=== PATIENT | female | born 1995 | race Caucasian/White ===

== ENCOUNTER → 2018-04-15 09:03 | Outpatient (CLI) | payer MEDICAID, SELFPAY | PROVIDERS: PCP Pediatrics; Visit Provider Nurse Practitioner | DX: Z02.0 Encounter for examination for admission to educational institution (principal) ==

== ENCOUNTER 2019-10-18 14:30 | Outpatient (RCR) | payer MEDICAID, SELFPAY ==
--- NOTE | 2019-10-11 15:43 | HMH.PTOPEV ---
PT Outpatient Evaluation Rehab PT Outpatient Evaluation Start: 10/11/19 15:06 Freq: Status: Active Protocol: Document 10/11/19 15:33 PHOMAJO (Rec: 10/11/19 15:43 PHORNE [id number]) Electronically Signed By Jason Cole, PT 10/11/19 15:33 Outpatient Therapy Subjective History Subjective History Pt is 24 yowf who presents with c/o pain in lateral and post left hip x 3 yrs after receiving an epidural during childbirth. She reports the pain is constant, but worse with prolonged standing and walking. She reports no numbness or tingling and no pain further down the left LE. She also reports no c/o pain in the low back. PMH: none significant. Chief Complaint Pain Symptom Type Ache,Sharp Symptoms Relieved By Rest/Positioning Symptoms Aggravated By Standing,Walking Prior Functional Limitations None Current Functional Limitations Lifting,Standing,Walking Symptom Description Constant but Variable Level of pain today (0-10) 2 Pain scale - at its worst (0-10) 7 Lumbopelvic Eval Palapation tenderness left Lumbar/Sacral Palpation Findings Tenderness Lumbar/Sacral Palpation Overall Comment Greater troch and SI Range of Motion Lumbar Spine ROM Reason Not Measured Within Functional Limits Manual Muscle Test Bilateral Knee Extension Strength Grade 5 Normal Knee Flexion Strength Grade 5 Normal Hip Flexion Strength Grade 5 Normal Hip Abduction Strength Grade 5 Normal Hip Adduction Strength Grade 5 Normal Hip External Rotation Strength Grade 5 Normal Hip Internal Rotation Strength Grade 5 Normal Ankle Dorsiflexion Strength Grade 5 Normal Gastronemius/Soleus Strength Grade 5 Normal DTR Rt Patellar 2+ Lt Patellar 2+ Rt Gastroc/Soleus 2+ Lt Gastroc/Soleus 2+ Special Tests Forward Bending Test- Standing Negative Left,Negative Right Hip Scouring (Quadrant) Test Negative Left,Negative Right Hip Frederick (CORNELIUS) Test Negative Left,Negative Right Hip Piriformis Test Negative Right,Positive Left Hip Bowstring (Cram) Test Negative Left,Negative Right Sciatic Nerve Tension Test Negative Right,Positive Left Unilateral Straight Leg Raise (Lasegue) Negative Left,Negative Right Test Lumbar Long [place] Distraction Test/Manual Negative Traction Outpatient Therapy Assessment Impairments Problems/Impairmments Palpation Tenderness,Imp
== END 2019-10-18 14:35 | disposition home or self-care (01) ==
LOC: PT 14:30
PROVIDERS: Visit Provider Nurse Practitioner Family
DX: M54.5 Low back pain (principal)
CPT/HCPCS: 97010; 97014; 97110; 97140; 97163; G0283

== ENCOUNTER → 2020-06-12 09:11 | Outpatient (CLI) | payer MEDICAID, SELFPAY ==
[2020-06-12 10:24] LABS: Alanine Aminotransferase 35 U/L (12-78); Albumin Level 4.1 g/dl (3.5-5.0); Alkaline Phosphatase 52 U/L (38-126); Aspartate Amino Transferase 25 U/L (14-36); Bilirubin,Direct 0.1 mg/dl (0.0-0.4); Bilirubin,Indirect 0.4 mg/dL (0.0-0.9); Bilirubin,Total 0.5 mg/dl (0.2-1.3); Bilirubin,Unconjugated 0.4 mg/dL (0.0-1.1)
== END ==
PROVIDERS: Visit Provider Podiatrist
DX: B35.1 Tinea unguium (principal)
CPT/HCPCS: 36415; 80076; 87102; 87206; 87220

== ENCOUNTER 2020-11-08 14:39 | Emergency (ER) | payer BC, MEDICAID, SELFPAY ==
[2020-11-08 14:39] VITALS: BP 159/91; PULSE 107; RESP 21; TEMP 36.8; O2SAT 99; BMI 30.7
[2020-11-08 15:16] LABS: UTC Strep Screen (Rapid) Positive (Negative)
[2020-11-08 15:17] LABS: UTC Influenza A Antigen Negative (Negative); UTC Influenza B Antigen Negative (Negative)
--- NOTE | 2020-11-08 15:23 | HMH.EDUTC ---
[facility] [place] Disposition Clinical Impression: Strep throat Disposition: Home, Self-Care Condition on Discharge: Good Instructions: Strep Throat, DI for Strep Throat Additional Instructions: Drink plenty of fluids. Take tylenol or ibuprofen for pain or fever. Take the medications as directed. Follow up with your regular doctor. GO TO THE ER FOR ANY WORSENING SYMPTOMS Throw your tooth brush away and get a new one tomorrow. Prescriptions: Ondansetron [Zofran 4mg ODT] 4 mg PO Q8HP PRN #12 tab.rapdis PRN Reason: Nausea Transmission Status: Received by [id number] Azithromycin [Z-Leif 250mg Tab*] 250 mg PO UD DOSE PK #6 tab Transmission Status: Received by [facility] Referrals: Toño Coyne APRN [Primary Care Provider] - Forms: Work/School Release Time of Disposition: 15:38 Medical Decision Making - Medical Records Medical records reviewed: No: I reviewed the patient's medical records. - Francisco Inquiry Pt receiving controlled substance: No Vital Signs: 11/08/20 14:39 11/08/20 15:40 Temperature 98.3 F 98.3 F Temperature Source Oral Oral Pulse Rate 107 H Pulse Rate [Right] 107 H Respiratory Rate 21 21 Blood Pressure 159/91 H Blood Pressure [Right Arm] 159/91 H Blood Pressure Mean [Right Arm] 113 02 Sat by Pulse Oximetry 99 Oxygen Delivery Method Room Air - Lab Data Lab results reviewed: Yes: I reviewed the patient's lab results. Lab Results 11/08/20 15:04: Influenza Type A Ag Negative, Influenza Type B Ag Negative 11/08/20 15:04: Strep Scn Rapid [facility] Positive A [facility] [place] HPI - General Stated complaint: Flu test Time Seen by Provider: 11/08/20 15:23 Description of Symptoms (Recalled from Triage Doc. by RN): States she has had NVD, body aches and cough, denies fever, states she believes she has the flu. HEENT Symptoms (Recalled from RN notes): Yes Resp Symptoms (Recalled from RN notes): Yes Skin Symptoms (Recalled from RN notes): No MS Symptoms (Recalled from RN notes): No Functional Status (Recalled from RN notes): na - History of Present Illness Provider Complaint: She reports that she has had a sore throat, nausea, and fever for the past 1 day. She had a negative covid test at her work today (snf). - Related Data Previous Rx's Medication Instructions Recorded ciclopirox 8 % topical solution 1 applic TOPICAL DAILY 90 Days 06/12/20 #6.6 ml terbinafine HCl 250 mg tablet 250 mg PO DAILY #30 tab 06/12/20 Azithromycin [Z-Leif 250mg Tab*] 250 mg PO UD DOSE PK #6 tab 11/08/20 Ondansetron [Zofran 4mg ODT] 4 mg PO Q8HP PRN #12 tab.rapdis 11/08/20 Allergies Allergy/AdvReac Type Severity Reaction Status Date / Time clavulanic acid Allergy Intermediate I-HIVES Verified 06/12/20 08:22 [From AUGMENTIN] clindamycin [CLINDAMYCIN] Allergy Intermediate I-HIVES Verified 06/12/20 08:22 cephalexin Allergy Verified 06/12/20 08:22 - Worker's Comp Is this a Worker's Comp case?: No [facility] History - Hepatitis A Screen Drug use history?: No High risk sexual behaviors?: No History of sexually transmitted infection?: No Currently employed?: No Childcare worker?: No Do you have indoor plumbing?: Yes Do you have electricity?: Yes Attestation statement:: This patient has been screened for Hepatitis A risk factors. I have reviewed the patient's past medical history: Yes Medical History: Reports:: Depression, MRSA Other Surgeries: Yes: Colonoscopy, Tubal Ligation Amputation: No Fractures: No Comment: Rt knee - Social History Smoking Status: Current every day smoker Tobacco Type: cigarettes # Packs/Day (cigarettes): 1 Alcohol Intake: never Substance Use Type: denies use Occupational Status: other - Psychiatric History Pschychiatric History:: Reports:: Depression Family Hx:: No significant family history ROS Obtained: Yes All systems reviewed & no additional complaints - Constitutional Constitutional: Reports chills, Repor
[2020-11-08 15:40] VITALS: BP 159/91; PULSE 107; RESP 21; TEMP 36.8; O2SAT 99
== END 2020-11-08 15:44 | disposition home or self-care (01) ==
PROVIDERS: Emergency Provider Nurse Practitioner Family; PCP Nurse Practitioner Family
DX: J02.0 Streptococcal pharyngitis (principal); F17.210 Nicotine dependence, cigarettes, uncomplicated; Z88.1 Allergy status to other antibiotic agents
CPT/HCPCS: 87804; 87880; 99202; G0463

== ENCOUNTER 2021-01-31 14:16 | Emergency (ER) | payer BC, MEDICAID, SELFPAY ==
[2021-01-31 14:29] VITALS: BP 111/73; PULSE 67; RESP 16; TEMP 36.8; O2SAT 99; BMI 31.9
--- NOTE | 2021-01-31 14:43 | HMH.EDUTC ---
[facility] [place] Disposition Clinical Impression: Vertigo Serous otitis media Qualifiers: Chronicity: acute Laterality: bilateral Recurrence: non-recurrent Qualified Code(s): H65.03 - Acute serous otitis media, bilateral Disposition: Home, Self-Care Condition on Discharge: Good Instructions: DI for Vertigo, How to Perform Kiana Maneuver Additional Instructions: Take the medications as directed. The meclizine (antivert) medication will make you drowsy, so don't drive or operate heavy machinery after taking it. Follow up with your primary care doctor. GO TO THE ER FOR ANY WORSENING SYMPTOMS OR CONCERNS, ESPECIALLY ANY WORSENING DIZZINESS, ETC Prescriptions: Meclizine HCl [Meclizine 25mg Tab] 25 mg PO Q6HP PRN #30 tab PRN Reason: Vertigo Transmission Status: Received by [id number] methylPREDNISolone [Medrol] 4 mg PO DIRECTED 6 Days #21 tab.ds.pk Transmission Status: Received by [facility] Azithromycin [Z-Leif 250mg Tab*] 250 mg PO UD DOSE PK #6 tab Transmission Status: Received by [facility] Referrals: Guy Giron MD [Primary Care Provider] - Forms: Work/School Release Time of Disposition: 16:03 Medical Decision Making - Medical Records Medical records reviewed: No: I reviewed the patient's medical records. - [place] Inquiry Pt receiving controlled substance: No Vital Signs: 01/31/21 14:29 01/31/21 15:49 Temperature 98.2 F 98.3 F Temperature Source Oral Oral Pulse Rate 60 Pulse Rate [Right] 67 Respiratory Rate 16 16 Blood Pressure 112/70 Blood Pressure [Right Arm] 111/73 Blood Pressure Mean [Right Arm] 85 Blood Pressure Source Automatic Cuff Blood Pressure Source [Right Arm] Automatic Cuff Blood Pressure Position Sitting Blood Pressure Position [Right Arm] Sitting 02 Sat by Pulse Oximetry 99 Oxygen Delivery Method Room Air Room Air - Lab Data Lab Results 01/31/21 14:46: Influenza Type A Ag Negative, Influenza Type B Ag Negative Orders (Tests/Meds): ED MEDICATIONS Discontinued Medications Generic Name Dose Route Start Last Admin Trade Name Freq PRN Reason Stop Dose Admin Promethazine HCl 25 mg 01/31/21 14:58 01/31/21 15:29 Promethazine Hcl 25mg/Ml 1ml Vial IM 01/31/21 14:59 25 mg ONCE ONE Administration [facility] [place] HPI - General Stated complaint: vertigo Time Seen by Provider: 01/31/21 14:43 Mode of Arrival: Wheelchair Source of Information: Patient Limitations: No Limitations Description of Symptoms (Recalled from Triage Doc. by RN): pt c/o dizziness that started around noon. C/o room spinning, vomiting and chills HEENT Symptoms (Recalled from RN notes): No Resp Symptoms (Recalled from RN notes): No Skin Symptoms (Recalled from RN notes): No MS Symptoms (Recalled from RN notes): No Functional Status (Recalled from RN notes): na - History of Present Illness Provider Complaint: She states that she has had dizziness since earlier today. She states that it feels like the room and spinning. Moving her head and trying to walk makes it worse. She has had nausea/vomiting with her dizziness also. She denies any headache. She is chilling, but she denies any recent illnesses. 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 Her last test was on Friday (4 days ago). She has had a flu shot and she has completed her covid-19 vaccine (2 shots). - Related Data Previous Rx's Medication Instructions Recorded ciclopirox 8 % topical solution 1 applic TOPICAL DAILY 90 Days 06/12/20 #6.6 ml terbinafine HCl 250 mg tablet 250 mg PO DAILY #30 tab 06/12/20 Azithromycin [Z-Leif 250mg Tab*] 250 mg PO UD DOSE PK #6 tab 11/08/20 Ondansetron [Zofran 4mg ODT] 4 mg PO Q8HP PRN #12 tab.rapdis 11/08/20 permethrin 1 % topical liquid 60 ml TOPICAL ONCE #240 ml 01/17/21 prednisone 20 mg tablet 20 mg PO BID 5 Days #10 tab 01/17/21 triamcinolone acetonide 0.1 % 1 applic TOPICAL BID #30 g 01/17/21 topical cream
[2021-01-31 15:06] LABS: UTC Influenza A Antigen Negative (Negative); UTC Influenza B Antigen Negative (Negative)
[2021-01-31 15:49] VITALS: BP 112/70; PULSE 60; RESP 16; TEMP 36.8; O2SAT 98
== END 2021-01-31 16:08 | disposition home or self-care (01) ==
PROVIDERS: Emergency Provider Nurse Practitioner Family; PCP Emergency Medicine
DX: H65.03 Acute serous otitis media, bilateral (principal); F33.1 Major depressive disorder, recurrent, moderate; F17.210 Nicotine dependence, cigarettes, uncomplicated; Z79.899 Other long term (current) drug therapy
CPT/HCPCS: 87804; 96372; 99202; G0463; U0003

== ENCOUNTER 2021-04-30 17:55 | Emergency (ER) | payer BC, MEDICAID, SELFPAY ==
[2021-04-30 19:59] VITALS: BP 139/89; PULSE 85; RESP 16; TEMP 37; O2SAT 99; BMI 32.5
--- NOTE | 2021-04-30 20:05 | HMH.EDUTC ---
[facility] [place] Clinical Impression: Poison jessica Disposition: Home, Self-Care Condition on Discharge: Good Instructions: DI for Contact Dermatitis, DI for Poison Jessica Allergy Additional Instructions: Avoid contact with the offending substance (poison jessica). Don't put the topical steroids (triamcinolone) on your face or your groin. Follow up with your regular doctor. GO TO THE ER FOR ANY WORSENING SYMPTOMS OR CONCERNS Prescriptions: methylPREDNISolone [Medrol] 4 mg PO DIRECTED 6 Days #21 tab.ds.pk Transmission Status: Received by [facility] Triamcinolone Acetonide 1 applicatio TP TIDP PRN 7 Days #1 tube PRN Reason: Itching Transmission Status: Received by [facility] Referrals: Guy Giron MD [Primary Care Provider] - Time of Disposition: 20:11 Medical Decision Making - Medical Records Medical records reviewed: No: I reviewed the patient's medical records. - [place] Inquiry Pt receiving controlled substance: No Vital Signs: 04/30/21 19:59 04/30/21 20:19 Temperature 98.6 F 98.6 F Temperature Source Oral Pulse Rate 85 Pulse Rate [Right] 85 Respiratory Rate 16 16 Blood Pressure 139/89 Blood Pressure [Right Arm] 139/89 Blood Pressure Mean [Right Arm] 105 Blood Pressure Position [Right Arm] Sitting 02 Sat by Pulse Oximetry 99 [facility] [place] - General Stated complaint: rash/poison jessica Time Seen by Provider: 04/30/21 20:05 Mode of Arrival: Ambulatory Source of Information: Patient Limitations: No Limitations Description of Symptoms (Recalled from Triage Doc. by RN): pt believes she may have poison jessica up and down her R arm. pt states the rash is itchy and painful. HEENT Symptoms (Recalled from RN notes): No Resp Symptoms (Recalled from RN notes): No Skin Symptoms (Recalled from RN notes): Yes (pt has an itchy/painful rash scattered on her R arm.) MS Symptoms (Recalled from RN notes): No Functional Status (Recalled from RN notes): na - History of Present Illness Provider Complaint: She states tht she has had itching and rash of her right arm for the past 2 days. - Related Data Previous Rx's Medication Instructions Recorded Meclizine HCl [Meclizine 25mg Tab] 25 mg PO Q6HP PRN #30 tab 01/31/21 [id number] 3.5 4 drp OTIC TID 10 Days #10 ml 02/07/21 mg-10,000 unit/mL-1 % ear drops,susp Triamcinolone Acetonide 1 applicatio TP TIDP PRN 7 Days #1 04/30/21 tube methylPREDNISolone [Medrol] 4 mg PO DIRECTED 6 Days #21 04/30/21 tab.ds.pk Allergies Allergy/AdvReac Type Severity Reaction Status Date / Time clavulanic acid Allergy Intermediate I-HIVES Verified 04/30/21 20:02 [From AUGMENTIN] clindamycin [CLINDAMYCIN] Allergy Intermediate I-HIVES Verified 04/30/21 20:02 cephalexin Allergy Verified 04/30/21 20:02 - Worker's Comp Is this a Worker's Comp case?: No [facility] History - Hepatitis A Screen Drug use history?: No High risk sexual behaviors?: No History of sexually transmitted infection?: No Currently employed?: No Childcare worker?: No Do you have indoor plumbing?: Yes Do you have electricity?: Yes Attestation statement:: This patient has been screened for Hepatitis A risk factors. I have reviewed the patient's past medical history: Yes Medical History: Reports:: Depression, MRSA Other Surgeries: Yes: Colonoscopy, Tubal Ligation Amputation: No Fractures: No Comment: Rt knee - Social History Smoking Status: Current every day smoker Tobacco Type: cigarettes # Packs/Day (cigarettes): 1 Alcohol Intake: current Alcohol Intake Frequency:: holidays/special occasions only Substance Use Type: denies use Occupational Status: other - Psychiatric History Pschychiatric History:: Reports:: Depression Family Hx:: No significant family history ROS Obtained: Yes All systems reviewed & no additional complaints - Constitutional Constitutional: Denies chills, Denies fever(s) - Musculoskeletal Musculoskeletal: De
[2021-04-30 20:19] VITALS: BP 139/89; PULSE 85; RESP 16; TEMP 37
== END 2021-04-30 20:20 | disposition home or self-care (01) ==
PROVIDERS: Emergency Provider Nurse Practitioner Family; PCP Emergency Medicine
DX: L23.7 Allergic contact dermatitis due to plants, except food (principal); F17.210 Nicotine dependence, cigarettes, uncomplicated; Z88.1 Allergy status to other antibiotic agents
CPT/HCPCS: 99202; G0463

== ENCOUNTER 2022-01-26 09:02 | Emergency (ER) | payer BC, MEDICAID, SELFPAY ==
[2022-01-26 09:16] VITALS: BP 131/97; PULSE 103; RESP 18; TEMP 37; O2SAT 99; BMI 32.5
[2022-01-26 09:22] LABS: UTC Influenza A Antigen Positive (Negative)
[2022-01-26 09:23] LABS: UTC Influenza B Antigen Negative (Negative)
--- NOTE | 2022-01-26 09:30 | HMH.EDUTC ---
[place] Disposition Clinical Impression: Influenza A Disposition: Home, Self-Care Condition on Discharge: Good Instructions: Influenza, DI for Influenza -- Adult Additional Instructions: Drink plenty of fluids. Take tylenol or ibuprofen for pain or fever. Take the medications as directed. Follow up with your regular doctor. GO TO THE ER FOR ANY WORSENING SYMPTOMS Prescriptions: Brompheniramine/Pseudoephed/Dm [Bromfed Dm Cough Syrup] 5 ml PO Q6HP PRN #240 ml PRN Reason: Cough Transmission Status: Received by [facility] Ondansetron [Zofran 4mg ODT] 4 mg PO Q8HP PRN #20 tab PRN Reason: Nausea Transmission Status: Received by [facility] Oseltamivir Phosphate [Tamiflu 75mg Capsule] 75 mg PO BID #10 cap Transmission Status: Received by [facility] Referrals: Guy Giron MD [Primary Care Provider] - Forms: Work/School Release Time of Disposition: 09:46 Medical Decision Making - Medical Records Medical records reviewed: No: I reviewed the patient's medical records. - [place] Inquiry Pt receiving controlled substance: No Vital Signs: 01/26/22 09:16 01/26/22 10:18 Temperature 98.6 F 98.6 F Temperature Source Oral Pulse Rate 103 H Pulse Rate [Left] 103 H Respiratory Rate 18 18 Blood Pressure 131/97 H Blood Pressure [Right Arm] 131/97 H Blood Pressure Mean [Right Arm] 108 02 Sat by Pulse Oximetry 99 - Lab Data Lab results reviewed: Yes: I reviewed the patient's lab results. Lab Results 01/26/22 09:13: Influenza Type A Ag Positive A, Influenza Type B Ag Negative [place] HPI - General Stated complaint: body aches, fever, vomiting, congestion Time Seen by Provider: 01/26/22 09:30 Mode of Arrival: Ambulatory Source of Information: Patient Limitations: No Limitations Description of Symptoms (Recalled from Triage Doc. by RN): pt c/o n/v/d, body aches, fever and body cramps since last night. HEENT Symptoms (Recalled from RN notes): No Resp Symptoms (Recalled from RN notes): No Skin Symptoms (Recalled from RN notes): No MS Symptoms (Recalled from RN notes): No Functional Status (Recalled from RN notes): wnl - History of Present Illness Provider Complaint: She began feeling bad last night. she has had fever, chills, cough, and body aches. - Related Data Previous Rx's Medication Instructions Recorded Meclizine HCl [Meclizine 25mg Tab] 25 mg PO Q6HP PRN #30 tab 01/31/21 [id number] 3.5 4 drp OTIC TID 10 Days #10 ml 02/07/21 mg-10,000 unit/mL-1 % ear drops,susp Triamcinolone Acetonide 1 applicatio TP TIDP PRN 7 Days #1 04/30/21 tube methylPREDNISolone [Medrol] 4 mg PO DIRECTED 6 Days #21 04/30/21 tab.ds.pk Brompheniramine/Pseudoephed/Dm 5 ml PO Q6HP PRN #240 ml 01/26/22 [Bromfed Dm Cough Syrup] Ondansetron [Zofran 4mg ODT] 4 mg PO Q8HP PRN #20 tab 01/26/22 Oseltamivir Phosphate [Tamiflu 75 mg PO BID #10 cap 01/26/22 75mg Capsule] Allergies Allergy/AdvReac Type Severity Reaction Status Date / Time clavulanic acid Allergy Intermediate I-HIVES Verified 04/30/21 20:02 [From AUGMENTIN] clindamycin [CLINDAMYCIN] Allergy Intermediate I-HIVES Verified 04/30/21 20:02 cephalexin Allergy Verified 04/30/21 20:02 - Worker's Comp Is this a Worker's Comp case?: No [facility] History - Hepatitis A Screen Drug use history?: No High risk sexual behaviors?: No History of sexually transmitted infection?: No Currently employed?: No Childcare worker?: No Do you have indoor plumbing?: Yes Do you have electricity?: Yes Attestation statement:: This patient has been screened for Hepatitis A risk factors. I have reviewed the patient's past medical history: Yes Medical History: Reports:: Depression, MRSA Other Surgeries: Yes: Colonoscopy, Tubal Ligation Amputation: No Fractures: No Comment: Rt knee - Social History Smoking Status: Current every day smoker Tobacco Type: cigarettes # Packs/
[2022-01-26 10:18] VITALS: BP 131/97; PULSE 103; RESP 18; TEMP 37
== END 2022-01-26 10:19 | disposition home or self-care (01) ==
PROVIDERS: Emergency Provider Nurse Practitioner Family; PCP Emergency Medicine
DX: J10.1 Influenza due to other identified influenza virus with other respiratory manifestations (principal); F17.210 Nicotine dependence, cigarettes, uncomplicated
CPT/HCPCS: 87804; 99212; G0463

== ENCOUNTER → 2022-08-07 09:34 | Outpatient (CLI) | payer BC, MEDICAID, SELFPAY ==
[2022-08-07 12:36] LABS: Thyroid Stimulating Hormone 6.68 uIU/mL (0.465-4.68)
[2022-08-07 14:23] LABS: T4 (Thyroxine) 7.9 ug/dl (5.53-11.0)
[2022-08-07 14:37] LABS: Thyroid Stimulating Hormone 6.59 uIU/mL (0.465-4.68)
[2022-08-07 15:10] LABS: Free Thyroxine Index 2.3 ug/dL (5.93-13.13); Triiodothryronine (T3) Uptake 29 % (23.5-40.5)
== END ==
PROVIDERS: PCP Emergency Medicine; Visit Provider Obstetrics & Gynecology
DX: R53.83 Other fatigue (principal)
CPT/HCPCS: 36415; 84436; 84443; 84479

== ENCOUNTER → 2023-04-17 09:25 | Outpatient (CLI) | payer BC, MEDICAID, SELFPAY ==
[2023-04-21 09:17] LABS: Alanine Aminotransferase 31 U/L (12-78); Albumin Level 4.2 g/dl (3.5-5.0); Albumin/Globulin Ratio 1.4 (1.1-1.8); Alkaline Phosphatase 67 U/L (38-126); Anion Gap 16.7 mEq/L (5-15); Aspartate Amino Transferase 32 U/L (14-36); Bilirubin,Total 0.7 mg/dl (0.2-1.3); Blood Urea Nitrogen 15 mg/dl (7-17); Calcium 8.8 mg/dl (8.4-10.2); Carbon Dioxide 23 mmol/L (22.0-30.0); Chloride 105 mmol/L (98-107); Estimated Glomerular Filt Rate 99 ml/min (>60); GFR (African American) 120 ML/MIN (>60); Glucose 85 mg/dl (74-100); Potassium 4.7 mmoL/L (3.5-5.1); Sodium 140 mmol/L (136-145); Total Protein,Serum 7.2 g/dl (6.3-8.2)
[2023-04-21 09:33] LABS: Free T4 (Free Thyroxine) 1.07 ng/dl (0.78-2.19)
[2023-04-21 09:34] LABS: 25-OH Vitamin D, Total 24.4 ng/mL (30-100)
[2023-04-21 09:48] LABS: Thyroid Stimulating Hormone 5.47 uIU/mL (0.465-4.68)
== END ==
LOC: LAB.DROPOF 04-18 06:34
PROVIDERS: PCP Student in an Organized Health Care Education/Training Program; Visit Provider Student in an Organized Health Care Education/Training Program
DX: E03.9 Hypothyroidism, unspecified (principal); E55.9 Vitamin D deficiency, unspecified
CPT/HCPCS: 80053; 82306; 84439; 84443

== ENCOUNTER → 2023-06-17 08:22 | Outpatient (CLI) | payer BC, MEDICAID, SELFPAY ==
[2023-06-17 18:30] LABS: Basophils % 0.6 % (0.1-2.0); Eosinophils # 0.1 K/mm3 (0.0-0.4); Eosinophils % 1.5 % (0.1-12.0); Hematocrit 44.7 % (37.0-47.0); Hemoglobin 14.2 g/dL (12.2-16.2); Lymphocytes # 2.3 K/mm3 (0.7-4.5); Lymphocytes % 31.3 % (10-50); Mean Corpuscular HGB Conc 31.8 g/dL (31.8-35.4); Mean Corpuscular Hemoglobin 30.3 pg (27.0-31.2); Mean Corpuscular Volume 95.3 fl (81-99); Mean Platelet Volume 10.2 fl (7.4-10.4); Monocytes # 0.3 K/mm3 (0.1-1.0); Monocytes % 4.4 % (1.7-9.3); Neutrophils # 4.6 K/mm3 (1.8-7.8); Neutrophils % 62.1 % (37.0-80.0); Platelet Count 279 K/mm3 (142-424); Red Blood Count 4.69 M/mm3 (4.20-5.40); Red Cell Distribution Width 12.8 % (11.5-17.5); White Blood Count 7.4 K/mm3 (4.8-10.8)
[2023-06-17 19:35] LABS: 25-OH Vitamin D, Total 24.9 ng/mL (30-100); T4 (Thyroxine) 7.7 ug/dl (5.53-11.0)
[2023-06-17 19:49] LABS: Thyroid Stimulating Hormone 4.44 uIU/mL (0.465-4.68)
== END ==
PROVIDERS: PCP Student in an Organized Health Care Education/Training Program; Visit Provider Student in an Organized Health Care Education/Training Program
DX: F39 Unspecified mood [affective] disorder (principal); E03.9 Hypothyroidism, unspecified; E55.9 Vitamin D deficiency, unspecified
CPT/HCPCS: 82306; 84436; 84443; 85025

== ENCOUNTER → 2023-08-27 14:46 | Outpatient (CLI) | payer BC, MEDICAID, SELFPAY ==
--- NOTE | 2023-08-27 14:46 | CT_ITS ---
FINAL REPORT CLINICAL HISTORY: persistent, worsening RIVAS COMPARISON: None FINDINGS: Axial images of the head were obtained without contrast. Coronal and sagittal reformatted images were also obtained.This study was performed with techniques to keep radiation doses as low as reasonably achievable (ALARA). Individualized dose reduction techniques using automated exposure control or adjustment of mA and/or kV according to the patient's size were employed. There is no evidence of intracranial hemorrhage or mass. The ventricular size is within normal limits. There is no evidence of shift of the midline structures. No abnormal extra axial fluid collection is identified. No skull abnormality is seen on the bone window images. There is mild mucosal thickening with air-fluid levels noted in the maxillary sinuses bilaterally consistent with sinusitis. IMPRESSION: No acute intracranial abnormality. Mild sinus mucosal thickening and small maxillary air fluid levels compatible myositis. Reviewed, Interpreted and Dictated by Fitz Spivey III, MD Transcribed by Darby Pradhan Authenticated and [facility]
== END ==
PROVIDERS: PCP Student in an Organized Health Care Education/Training Program; Visit Provider Student in an Organized Health Care Education/Training Program
DX: G44.52 New daily persistent headache (NDPH) (principal)
CPT/HCPCS: 70450

== ENCOUNTER 2024-02-06 18:58 | Outpatient (CLI) | payer BC, MEDICAID, SELFPAY ==
[2024-02-06 19:12] LABS: Free T4 (Free Thyroxine) 1.01 ng/dl (0.78-2.19)
[2024-02-06 19:26] LABS: Thyroid Stimulating Hormone 6.85 uIU/mL (0.465-4.68)
== END 2024-02-06 23:59 ==
LOC: LAB.DROPOF 18:58
PROVIDERS: PCP Student in an Organized Health Care Education/Training Program; Visit Provider Student in an Organized Health Care Education/Training Program
DX: E03.9 Hypothyroidism, unspecified (principal); N39.0 Urinary tract infection, site not specified; B96.89 Other specified bacterial agents as the cause of diseases classified elsewhere
CPT/HCPCS: 84439; 84443; 87086

== ENCOUNTER 2024-04-19 18:00 | Outpatient (CLI) | payer BC, MEDICAID, SELFPAY ==
[2024-04-19 19:18] LABS: Alanine Aminotransferase 48 U/L (12-78); Albumin Level 4.1 g/dl (3.5-5.0); Albumin/Globulin Ratio 1.5 (1.1-1.8); Alkaline Phosphatase 61 U/L (38-126); Aspartate Amino Transferase 37 U/L (14-36); Bilirubin,Total 1.1 mg/dl (0.2-1.3); Blood Urea Nitrogen 15 mg/dl (7-17); Calcium 9.1 mg/dl (8.4-10.2); Carbon Dioxide 23 mmol/L (22.0-30.0); Chloride 104 mmol/L (98-107); Chol/HDL Ratio 5.6 (1-3.5); Cholesterol 219 mg/dl (140-200); Estimated Glomerular Filt Rate 84 ml/min (>60); GFR (African American) 102 ML/MIN (>60); Globulin 2.8 g/dL (1.3-3.2); Glucose 91 mg/dl (74-100); HDL Cholesterol 39 mg/dl (40-60); Sodium 139 mmol/L (136-145); Total Protein,Serum 6.9 g/dl (6.3-8.2); Triglycerides 227 mg/dl (30-150); VLDL Cholesterol 45 mg/dL (0-40)
[2024-04-19 19:20] LABS: Basophils # 0.1 K/mm3 (0-0.2); Basophils % 0.8 % (0.1-2.0); Eosinophils # 0.1 K/mm3 (0.0-0.4); Eosinophils % 0.9 % (0.1-12.0); Hematocrit 42.9 % (37.0-47.0); Hemoglobin 14.1 g/dL (12.2-16.2); Lymphocytes # 2.2 K/mm3 (0.7-4.5); Lymphocytes % 26.7 % (10-50); Mean Corpuscular HGB Conc 32.8 g/dL (31.8-35.4); Mean Corpuscular Hemoglobin 31.2 pg (27.0-31.2); Mean Corpuscular Volume 94.9 fl (81-99); Mean Platelet Volume 10.7 fl (7.4-10.4); Monocytes # 0.4 K/mm3 (0.1-1.0); Monocytes % 4.3 % (1.7-9.3); Neutrophils # 5.7 K/mm3 (1.8-7.8); Neutrophils % 67.2 % (37.0-80.0); Platelet Count 304 K/mm3 (142-424); Red Blood Count 4.53 M/mm3 (4.20-5.40); Red Cell Distribution Width 13.5 % (11.5-17.5); White Blood Count 8.4 K/mm3 (4.8-10.8)
[2024-04-19 19:29] LABS: Direct LDL Cholesterol 127.92 mg/dL (100-129)
[2024-04-19 19:33] LABS: 25-OH Vitamin D, Total 21.6 ng/mL (30-100)
[2024-04-19 19:50] LABS: Thyroid Stimulating Hormone 5.73 uIU/mL (0.465-4.68)
[2024-04-20 08:47] LABS: HIV (1&2) Antibody Rapid NON REACTIVE
[2024-04-21 08:56] LABS: HCV Ab Non Reactive (Non Reactive)
== END 2024-04-19 23:59 | disposition home or self-care (01) ==
LOC: LAB.DROPOF 04-20 08:32
PROVIDERS: PCP Student in an Organized Health Care Education/Training Program; Visit Provider Student in an Organized Health Care Education/Training Program
DX: Z11.59 Encounter for screening for other viral diseases (principal); Z11.4 Encounter for screening for human immunodeficiency virus [HIV]; Z13.1 Encounter for screening for diabetes mellitus; E66.9 Obesity, unspecified; E55.9 Vitamin D deficiency, unspecified; E03.9 Hypothyroidism, unspecified; Z68.34 Body mass index [BMI] 34.0-34.9, adult
CPT/HCPCS: 80050; 80053; 80061; 82306; 83036; 84439; 84443; 85025

== ENCOUNTER 2024-04-21 13:47 | Outpatient (CLI) | payer BC, MEDICAID, SELFPAY ==
--- NOTE | 2024-04-21 13:47 | US_ITS ---
FINAL REPORT TECHNIQUE: Real-time grayscale and color ultrasound of the thyroid was performed. CLINICAL HISTORY: hypothyroid, new tenderness COMPARISON: None FINDINGS: The thyroid gland is diffusely heterogeneous with mild atrophy. Findings may be seen with chronic thyroiditis. There is a questionable isoechoic TR 3 nodule in the right lobe of the thyroid measuring up to 9 mm. IMPRESSION: Findings suggesting chronic thyroiditis. Questionable 9 mm nodule right lobe of the thyroid. No further follow-up required per TI-RADS criteria since morphology and size would render the nodule most likely benign, if real. Reviewed, Interpreted and Dictated by Zelda Hernandez MD Transcribed by Ting Villanueva Authenticated and [facility]
== END 2024-04-21 23:59 | disposition home or self-care (01) ==
LOC: RAD 13:47
PROVIDERS: PCP Student in an Organized Health Care Education/Training Program; Visit Provider Student in an Organized Health Care Education/Training Program
DX: E03.9 Hypothyroidism, unspecified (principal); E07.9 Disorder of thyroid, unspecified
CPT/HCPCS: 76536

== ENCOUNTER 2024-08-17 10:54 | Outpatient (CLI) | payer BC, MEDICAID, SELFPAY ==
[2024-08-17 19:12] LABS: Albumin Level 4.3 g/dl (3.5-5.0); Chloride 105 mmol/L (98-107); Sodium 138 mmol/L (136-145)
[2024-08-17 19:13] LABS: Potassium 4.7 mmoL/L (3.5-5.1)
[2024-08-17 19:15] LABS: Alanine Aminotransferase 82 U/L (12-78); Alkaline Phosphatase 53 U/L (38-126); Aspartate Amino Transferase 49 U/L (14-36); Bilirubin,Total 0.8 mg/dl (0.2-1.3); Blood Urea Nitrogen 14 mg/dl (7-17); Calcium 9.2 mg/dl (8.4-10.2); Carbon Dioxide 23 mmol/L (22.0-30.0); Estimated Glomerular Filt Rate 98 ml/min (>60); GFR (African American) 118 ML/MIN (>60); Glucose 111 mg/dl (74-100); Iron 82 ug/dL (37-170); Total Protein,Serum 7.2 g/dl (6.3-8.2)
[2024-08-17 19:16] LABS: Magnesium 1.8 mg/dl (1.6-2.3)
[2024-08-17 19:27] LABS: Total Iron Binding Capacity 327 ug/dL (265-497)
[2024-08-17 19:51] LABS: Ferritin 35.9 ng/ml (6.24-137)
[2024-08-17 20:07] LABS: Vitamin B12 446 pg/mL (239-931)
[2024-08-17 20:25] LABS: Folate 5.21 ng/mL
[2024-08-17 20:38] LABS: Free T4 (Free Thyroxine) 1.09 ng/dl (0.78-2.19)
[2024-08-17 21:05] LABS: Anion Gap 14.7 mEq/L (5-15)
[2024-08-17 21:06] LABS: Albumin/Globulin Ratio 1.5 (1.1-1.8); Globulin 2.9 g/dL (1.3-3.2)
[2024-08-17 21:32] LABS: 25-OH Vitamin D, Total 33.7 ng/mL (30-100)
== END 2024-08-17 23:59 | disposition home or self-care (01) ==
LOC: LAB.DROPOF 08-18 10:54
PROVIDERS: PCP Student in an Organized Health Care Education/Training Program; Visit Provider Student in an Organized Health Care Education/Training Program
DX: M79.10 Myalgia, unspecified site (principal); E03.9 Hypothyroidism, unspecified; E56.9 Vitamin deficiency, unspecified; Z86.39 Personal history of other endocrine, nutritional and metabolic disease; I73.9 Peripheral vascular disease, unspecified
CPT/HCPCS: 80053; 82306; 82607; 82728; 82746; 83540; 83550; 83735; 84439; 84443

== ENCOUNTER 2024-08-20 13:18 | Outpatient (CLI) | payer BC, MEDICAID, SELFPAY | END 2024-08-20 23:59 | disposition home or self-care (01) | LOC: RAD 13:18 | PROVIDERS: PCP Student in an Organized Health Care Education/Training Program; Visit Provider Student in an Organized Health Care Education/Training Program | DX: I70.201 Unspecified atherosclerosis of native arteries of extremities, right leg (principal) ==

== ENCOUNTER 2024-08-24 08:47 | Outpatient (CLI) | payer BC, MEDICAID, SELFPAY ==
--- NOTE | 2024-08-24 09:34 | US_ITS ---
PROCEDURE INFORMATION: Exam: US Abdomen, Limited; Right Upper Quadrant Exam date and time: 08/24/2024 10:14 AM Age: 29 years old Clinical indication: Abnormal findings; Abnormal lab test; Elevated liver enzymes TECHNIQUE: Imaging protocol: Real time ultrasound of the abdomen with image documentation. Limited exam focused on the right upper quadrant. Total images: 43 COMPARISON: No relevant prior studies available. FINDINGS: Liver: Fatty infiltration of the liver. Gallbladder: Sludge is noted within the gallbladder without evidence of stones. Biliary ducts: Common bile duct measures 2 mm. Pancreas: Visualized pancreas is unremarkable. Right kidney: Normal. No mass. No hydronephrosis. IMPRESSION: 1. Fatty infiltration of the liver. 2. Sludge is noted within the gallbladder without evidence of stones.
--- NOTE | 2024-08-24 09:34 | XR_ITS ---
PROCEDURE INFORMATION: Exam: XR Left Foot Complete; Alignment Exam date and time: 08/24/2024 10:00 AM Age: 29 years old Clinical indication: Pain; Foot; Left; Additional info: Foot pain TECHNIQUE: Imaging protocol: Radiologic exam of the left foot. Views: 3 or more views. COMPARISON: US ARTERIAL LOWER EXT REST 08/24/2024 9:14 AM FINDINGS: Bones/joints: No acute fracture. Soft tissues: There is no evidence for soft tissue swelling. IMPRESSION: 1. No evidence for acute fracture. 2. No joint space abnormalities identified.
--- NOTE | 2024-08-24 09:34 | XR_ITS ---
PROCEDURE INFORMATION: Exam: XR Right Foot Complete; Alignment Exam date and time: 08/24/2024 10:00 AM Age: 29 years old Clinical indication: Pain; Foot; Right; Additional info: Foot pain TECHNIQUE: Imaging protocol: Radiologic exam of the right foot. Views: 3 or more views. COMPARISON: CR XR FOOT WT BEARING RT 3V 08/24/2024 10:00 AM FINDINGS: Bones/joints: No acute fracture. The alignment is within normal limits. Soft tissues: Normal. IMPRESSION: Unremarkable examination.
== END 2024-08-24 23:59 | disposition home or self-care (01) ==
LOC: RT 08:48
PROVIDERS: PCP Student in an Organized Health Care Education/Training Program; Visit Provider Student in an Organized Health Care Education/Training Program
DX: R09.89 Other specified symptoms and signs involving the circulatory and respiratory systems (principal); I73.9 Peripheral vascular disease, unspecified; R74.8 Abnormal levels of other serum enzymes; M79.671 Pain in right foot; M79.672 Pain in left foot
CPT/HCPCS: 73630; 76705; 93923

== ENCOUNTER 2024-09-16 12:51 | Outpatient (CLI) | payer BC, SELFPAY ==
--- NOTE | 2024-09-16 12:54 | CA_ITS ---
FINAL REPORT CLINICAL HISTORY: Bilateral medial calf pain, Patient suffering tendonitis in right foot with a boot in use. FINDINGS: Color Doppler, duplex Doppler and compression sonography of the bilateral lower extremities was performed. There is no evidence of deep venous thrombosis from the level of the groin to the calf. The deep veins are patent and compressible. IMPRESSION: No evidence of deep venous thrombosis bilateral lower extremities. Reviewed, Interpreted and Dictated by Fitz Spivey III, MD Transcribed by Page Garibay Authenticated and [facility]
== END 2024-09-16 23:59 | disposition home or self-care (01) ==
LOC: RT 12:51
PROVIDERS: PCP Student in an Organized Health Care Education/Training Program; Visit Provider Podiatrist
DX: R60.9 Edema, unspecified (principal)
CPT/HCPCS: 93970

== ENCOUNTER 2024-10-19 09:30 | Outpatient (CLI) | payer BC, SELFPAY | END 2024-10-19 23:59 | disposition home or self-care (01) | LOC: LAB.DROPOF 10-20 10:36 | PROVIDERS: PCP Podiatrist; Visit Provider Podiatrist | DX: B35.1 Tinea unguium (principal) | CPT/HCPCS: 87102; 87206 ==

== ENCOUNTER 2025-07-14 09:17 | Emergency (ER) | payer BC, SELFPAY ==
[2025-07-14] VITALS (8 sets, daily range): BP systolic 99–114; BP diastolic 62–77; PULSE 53–94; RESP 16–18; TEMP 36.7–36.8; O2SAT 97–100; BMI 33.3
[2025-07-14 09:52] LABS: Microscopic, Urine URINE MICROSCOPIC (MICROSCOPIC)
[2025-07-14 09:57] LABS: Color,Urine YELLOW (Yellow); Glucose,Urine (UA) Negative (Negative); Ketones,Urine TRACE (Negative); Leukocyte Esterase,Urine TRACE (Negative); PH,Urine 5.5 (5.0-8.5); Protein,Urine TRACE (Negative); Urobilinogen,Urine 1.0 EU/dl (0.2)
[2025-07-14 10:11] LABS: Specific Gravity, Urine >= 1.030 (1.005-1.030)
[2025-07-14 10:12] LABS: Bilirubin,Urine 1+ (Negative)
[2025-07-14 10:13] LABS: Bacteria,Urine 3+ /lpf
--- NOTE | 2025-07-14 10:21 | CT_ITS ---
FINAL REPORT TECHNIQUE: Thin section axial images are obtained through the abdomen and pelvis after intravenous contrast. Reconstruction images were obtained from the axial data. Exam was performed using dose reduction techniques. CLINICAL HISTORY: abdominal pain COMPARISON: None. FINDINGS: LUNG BASES: Lung bases are clear. Heart size is normal. LIVER: Diffuse fatty liver. No focal lesion. GALLBLADDER/BILIARY SYSTEM: Gallbladder is present. No gallstones. No biliary dilatation. SPLEEN: Unremarkable. PANCREAS: Unremarkable. ADRENALS: Unremarkable. KIDNEYS/URETERS/BLADDER: No hydronephrosis, renal mass, or renal stone. Unremarkable urinary bladder. GI TRACT: No small bowel obstruction or dilatation. There are nonspecific fluid-filled small bowel loops in the right abdomen. Normal appendix. No acute colon abnormality. PELVIC ORGANS: The uterus and ovaries are unremarkable for age. Just anterior to the left ovary, but separate from the left ovary, is a 2 cm lesion containing fat and soft tissue density. There is a thin rim of peripheral calcification. This could represent an area of chronic fat necrosis. Mesenteric nodule also within the differential diagnosis. Favor benign process. LYMPH NODES/RETROPERITONEUM/MESENTERY: No lymphadenopathy. No abdominal aortic aneurysm. ABDOMINAL WALL: The abdominal wall is intact. FREE FLUID: No ascites. BONES: No acute osseous abnormality. IMPRESSION: 1. Nonspecific fluid-filled small bowel loops in the right abdomen. This could represent enteritis. 2. Fatty liver. 3. Mesenteric nodule in the left pelvis that appears separate from the left ovary. Favor benign etiology. However, recommend comparison to any prior outside exams if possible. Authenticated and ERN
[2025-07-14 10:30] LABS: Hematocrit 39.2 % (37.0-47.0); Hemoglobin 13.6 g/dL (12.2-16.2); Immature Granulocytes % 0.2 %; Mean Corpuscular HGB Conc 34.7 g/dL (31.8-35.4); Mean Corpuscular Hemoglobin 31.1 pg (27.0-31.2); Mean Corpuscular Volume 89.5 fl (81-99); Nucleated Red Blood Cells % 0 %; Platelet Count 288 K/mm3 (142-424); Red Blood Count 4.38 M/mm3 (4.20-5.40); Red Cell Distribution Width-SD 40.8 fL; White Blood Count 8.2 K/mm3 (4.8-10.8)
[2025-07-14 10:32] LABS: Chloride 110 mmol/L (98-107)
[2025-07-14 10:33] LABS: Potassium 4.2 mmoL/L (3.5-5.1); Sodium 137 mmol/L (136-145)
[2025-07-14 10:35] LABS: Alanine Aminotransferase 40 U/L (12-78); Aspartate Amino Transferase 38 U/L (14-36); Blood Urea Nitrogen 17 mg/dl (7-17); Creatinine Clearance Estimated 165 mL/min (50-200); Creatinine,Serum 0.70 mg/dl (0.52-1.04); Estimated Glomerular Filt Rate 97 ml/min (>60); GFR (African American) 117 ML/MIN (>60)
[2025-07-14 10:36] LABS: Alkaline Phosphatase 57 U/L (38-126); Bilirubin,Total 1.5 mg/dl (0.2-1.3); Calcium 8.6 mg/dl (8.4-10.2); Carbon Dioxide 20 mmol/L (22.0-30.0); Glucose 98 mg/dl (74-100); Lipase 84 U/L (23-300); Magnesium 1.8 mg/dl (1.6-2.3); Total Protein,Serum 7.1 g/dl (6.3-8.2)
[2025-07-14] MEDS: 0.9 % SODIUM CHLORIDE 1000ML 1,000 ML 999 ML IV (10:36)
[2025-07-14] MEDS: ONDANSETRON 4MG/2ML VIAL 4 MG IV (10:36)
[2025-07-14] MEDS: KETOROLAC 30MG/ML VIAL 30 MG IV ×2 (10:38→15:38)
[2025-07-14] MEDS: ACETAMINOPHEN 1,000MG/100ML VIAL 1000 MG IV (10:39)
[2025-07-14 10:40] LABS: Anion Gap 11.2 mEq/L (5-15)
[2025-07-14 10:51] LABS: Troponin I < 0.01 ng/ml (0.00-0.034)
[2025-07-14] MEDS: IOPAMIDOL-370 (76%);100ML BOTTLE 75 ML IV (10:55)
[2025-07-14] MEDS: SODIUM CHLORIDE 0.9% 10ML SYR (RAD ONLY) 10 ML IV (10:55)
--- NOTE | 2025-07-14 11:04 | ED_ITS ---
<Statement entered by Bruce Young DO - 07/15/25 00:00> I was consulted by the JEN, and we discussed the complexity of problems being addressed. I approved the treatment and management plan for this patient's care in the emergency department, thus performing a substantive portion of the medical decision making. I received handoff from the dayshift attending on this patient. This patient was also being seen by the midlevel provider. She had presented complaining of right flank and right upper quadrant abdominal pain. Bedside ultrasound was concerning for biliary pathology. The dayshift attending had spoken with the general surgery service who recommended a right upper quadrant ultrasound followed by discharge home and follow-up in the clinic given that she was not currently demonstrating any signs of sepsis. Right upper quadrant ultrasound resulted showing no evidence of cholecystitis but did show evidence of biliary sludge in the gallbladder. I discussed this with the patient and she was agreeable with this plan. She was discharged home in stable condition. Strict return precautions have been given in the event that she develops intractable pain, intractable nausea and vomiting, or developing fevers. Bruce Young DO Discharge Plan Disposition Chief Complaint: Urogenital-Female Prescriptions Prescriptions: No Action No Known Home Medications Referrals Follow up/Referrals: Fitz Le MD [Staff Physician, General Surgery] - See instructions Referral Note: follow up in office for gallbladder Provider,MD Callum [Primary Care Provider, Medical] - See instructions Instructions Patient Instructions: DI for Urinary Tract Infection (UTI), DI for Urinary Tract Infection in Children Print Language Print Language: Armenian Discharge ED Provider: Sharee Zhou General Adult HPI <Radha Rosa (ED), [employer] - Last Filed: 07/14/25 16:08> General Chief complaint: Urogenital-Female Stated complaint: back pain, freq. urination, nausea, vomiting Time Seen by Provider: 07/14/25 10:01 Mode of Arrival: Ambulatory Source of Information: Patient Description of Symptoms (Recalled from ER Triage Doc. by RN): Patient presents to ED for right sided flank pain that began at 1200 this morning. Patient reports significant nausea and frequency urinating, but no dysuria. Hx of UTIs. History of Present Illness HPI narrative: 30-year-old female presents to the ED today for complaint of back and right flank pain that started at 12:30 AM. She also had nausea and vomiting. She says the pain has worsened since then. She has increased urinary frequency. No fever or chills. No kidney stones in the past. She does have a history of UTIs. She has tenderness diffusely over her abdomen. No chest pain or shortness of breath. Related Data Home Medications ?Medication ?Instructions ?Recorded ?Confirmed No Known Home Medications 07/14/2507/04 Allergies Allergy/AdvReac Type Severity Reaction Status Date / Time cephalexin Allergy Intermediate Rash Verified 07/14/25 08:48 clavulanic acid (From Allergy Intermediate I-HIVES Verified 07/14/25 08:48 AUGMENTIN) clindamycin (CLINDAMYCIN) Allergy Intermediate I-HIVES Verified 07/14/25 08:48 Penicillins Allergy Rash Verified 07/14/25 08:48 PFS <Radha Rosa (ED), [employer] - Last Filed: 07/14/25 16:08> [facility] Disclaimer: The information contained in this section may have been updated after the patient was seen, as this information can be updated by other users. Medical History Achilles tendonitis, bilateral Anxiety and depression MDD (major depressive disorder), recurrent episode Mood disorder Hypothyroidism Irregular periods/menstrual cycles Obesity (BMI 30.0-34.9) Surgical History Hx of tubal ligation 11/2016 Family History Other No significant family history Social History Smoking Status: Current every day smoker tobacco type: cigarettes packs per day: 1 alcohol intake: current alcohol intake frequency: holidays/special occasions only substance use type: denies use current occupational status: other Travel in the last 8 weeks?: None Have you lived/traveled outside US in past 30 days?: No Contact w/someone who lives/traveled outside US past 30 days?: No Exposure to someone with infectious disease in past 14 days?: No Do you have a fever (greater than 100.4 F or 38 C)?: No Have you tested positive for COVID-19?: No Exposed to someone with COVID-19 in past 14 days?: No Do you have a sore throat?: No Do you have a cough?: No Do you have any weakness?: No Do you have any diarrhea?: No Are you experiencing any unusual bleeding?: No Do you have any muscle aches/pain?: No Do you have any abdominal pain?: No Are you experiencing loss of taste or smell?: No Other Medical History Have you received the Flu Vaccine for this season: No Have you received the Pneumonia Vaccine: No <Radha Rosa (ED), [employer] - Last Filed: 07/14/25 16:08> ROS Obtained: Yes Systems reviewed as appropriate & no additional complaints except as documented Constitutional Constitutional: Reports as per HPI Physical Exam <Radha Rosa (ED), [employer] - Last Filed: 07/14/25 16:08> General General appearance: alert Head Head exam: normocephalic Eye Eye exam: Present PERRL and EOMI ENT ENT exam: Present normal oropharynx and mucous membranes moist Neck Neck exam: Present full ROM and trachea midline Respiratory Respiratory exam: Present normal lung sounds bilaterally Cardiovascular Cardiovascular exam: Present regular rate, normal rhythm, normal heart sounds, +S1 and +S2 Abdominal Exam Abdominal exam: Present soft and normal bowel sounds Abdominal tenderness: Present diffuse and mild Extremities Exam Extremities exam: Present normal inspection, full ROM and normal capillary refill Back Exam Back exam: Present CVA tenderness (R) Neurological Exam Neurological exam: Present alert, oriented X3 and normal gait Skin Skin exam: Present warm, dry and intact Medical Decision Making <Radha Rosa (ED), [employer] - Last Filed: 07/14/25 16:08> Medical Records Screening: Per USPSTF and CDC recommendations, given the prevalence of disease in our region, it is our hospital?s policy to screen for HIV and viral Hepatitis for all patients aged 18 and over and those with ongoing risk factors. Francisco Inquiry Pt receiving controlled substance: No Francisco was queried for this patient: No Vital Signs: 07/14/25 09:30 07/14/25 09:30 07/14/25 12:28 Temperature 98.1 F 98.1 F Temperature Source Oral Pulse Rate 94 H 68 Pulse Rate [Left] 94 H Respiratory Rate 18 18 Blood Pressure 112/77 107/75 L Blood Pressure [Left Arm] 112/77 Blood Pressure Mean [Left Arm] 88 02 Sat by Pulse Oximetry 99 99 99 07/14/25 12:30 07/14/25 13:00 07/14/25 14:00 Temperature Temperature Source Pulse Rate 64 63 61 Pulse Rate [Left] Respiratory Rate Blood Pressure 114/75 104/66 L 99/62 L Blood Pressure [Left Arm] Blood Pressure Mean [Left Arm] 02 Sat by Pulse Oximetry 99 98 97 07/14/25 14:30 07/14/25 15:00 Temperature Temperature Source Pulse Rate 64 53 L Pulse Rate [Left] Respiratory Rate Blood Pressure 103/72 L 105/64 L Blood Pressure [Left Arm] Blood Pressure Mean [Left Arm] 02 Sat by Pulse Oximetry 98 100 Lab Data Lab Results 07/14/25 09:20: Urine Color Yellow, Urine Appearance Clear, Urine pH 5.5, Ur Specific [place] >= 1.030, Urine Protein Trace, Urine Glucose (UA) Negative, Urine Ketones Trace, Urine Blood Negative, Urine Nitrate Negative, Urine Bilirubin 1+ A, Urine Urobilinogen 1.0, Ur Leukocyte Esterase Trace, Urine RBC 3-5, Urine WBC 10-20, Ur Squamous Epith Cells 10-20, Urine Bacteria 3+ 07/14/25 09:40: WBC 8.2, RBC 4.38, Hgb 13.6, Hct 39.2, MCV 89.5, MCH 31.1, MCHC 34.7, RDW 12.4, Plt Count 288, MPV 11.4 H, Neut % (Auto) 83.7 H, Lymph % (Auto) 11.1, [place] % (Auto) 4.1, Eos % (Auto) 0.7, Baso % (Auto) 0.2, Neut # (Auto) 6.9, Lymph # (Auto) 0.9, [place] # (Auto) 0.3, Eos # (Auto) 0.1, Baso # (Auto) 0.0, Sodium 137, Potassium 4.2, Chloride 110 H, Carbon Dioxide 20 L, Anion Gap 11.2, BUN 17, Creatinine 0.70, Estimated Creat Clear 165, Estimated GFR 97, Est GFR ( Amer) 117, Glucose 98, Calcium 8.6, Magnesium 1.8, Total Bilirubin 1.5 H, AST 38 H, ALT 40, Alkaline Phosphatase 57, Troponin I < 0.01, Total Protein 7.1, Albumin 4.2, Globulin 2.9, Albumin/Globulin Ratio 1.4, Lipase 84 07/14/25 12:25: Urine Color Yellow, Urine Appearance Clear, Urine pH 5.0, Ur Specific [place] 1.015, Urine Protein Negative, Urine Glucose (UA) Negative, Urine Ketones Negative, Urine Blood Negative, Urine Nitrate Negative, Urine Bilirubin Negative, Urine Urobilinogen 0.2, Ur Leukocyte Esterase Negative, Urine RBC None, Urine WBC Occasional, Ur Squamous Epith Cells None, Urine Bacteria None 07/14/25 09:40 07/14/25 09:40 Orders (Tests/Meds): ED MEDICATIONS Discontinued Medications Generic Name Dose Route Start Last Admin Trade Name Freq PRN Reason Stop Dose Admin Acetaminophen 1,000 mg 07/14/25 10:22 07/14/25 10:39 Acetaminophen 1,000mg/100ml Vial IV 07/14/25 10:23 1,000 mg ONCE ONE Administration Sodium Chloride 1,000 mls @ 999 mls/hr 07/14/25 10:22 07/14/25 11:59 Sod Chlor 0.9% 1000ml Bag IV 07/14/25 11:22 Infused .Q1H1M ONE Infusion Iopamidol 75 ml 07/14/25 10:54 07/14/25 10:55 Iopamidol-370 (76%);100ml Bottle IV 07/14/25 10:55 75 ml ONCE ONE Administration Ketorolac Tromethamine 30 mg 07/14/25 10:22 07/14/25 10:38 Ketorolac 30mg/Ml Vial IV 07/14/25 10:23 30 mg ONCE ONE Administration Ketorolac Tromethamine 30 mg 07/14/25 15:28 07/14/25 15:38 Ketorolac 30mg/Ml Vial IV 07/14/25 15:29 30 mg ONCE ONE Administration Morphine Sulfate 4 mg 07/14/25 11:59 07/14/25 12:06 Morphine 4mg/Ml Syringe IV 07/14/25 12:00 4 mg ONCE ONE Administration Ondansetron HCl 4 mg 07/14/25 10:22 07/14/25 10:36 Ondansetron 4mg/2ml Vial IV 07/14/25 10:23 4 mg ONCE ONE Administration Sodium Chloride 10 ml 07/14/25 10:54 07/14/25 10:55 Sodium Chloride 0.9% 10ml Syr (Rad Only) IV 07/14/25 10:55 10 ml ONCE ONE Administration ORDERS Category Date Time Status CT abdomen pelvis w con Stat Cat Scan 07/14/25 10:21 Completed POCUS Point of Care (ER Only) Stat Exams 07/14/25 11:55 Completed US gallbladder Stat Exams 07/14/25 13:58 Completed CBC [Complete Blood Count Auto Diff] Stat Lab 07/14/25 09:40 Completed Comprehensive Metabolic Panel Stat Lab 07/14/25 09:40 Completed Lipase Stat Lab 07/14/25 09:40 Completed Magnesium Stat Lab 07/14/25 09:40 Completed Trop I [Troponin I] Stat Lab 07/14/25 09:40 Completed Troponin I Q3H Lab 07/14/25 13:30 Ordered Troponin I Q3H Lab 07/14/25 16:30 Ordered Urinalysis and Microscopic Stat Lab 07/14/25 09:20 Completed Urinalysis and Microscopic Stat Lab 07/14/25 12:25 Completed Urine Culture Stat Micro 07/14/25 09:20 Received Medical Decision Narrative: patient is a 30-year-old female presenting to the emergency department for evaluation of right flank pain and diffuse abdominal pain with increased urinary frequency. Patient is hemodynamically stable and nontoxic-appearing upon arrival, afebrile. Differential diagnosis includes kidney stone, UTI, pyelonephritis. Workup will be conducted with hematologic labs, specific imaging. Initial inventions include crystalloid bolus, analgesics. Initial workup reviewed by me hematologic labs are nonactionable. Ultrasound showed 2 mm wall thickening, no pericholecystic fluid and possible gallstones per Dr. Zhou. I called Dr. Le for surgical opinion and he wants her to get a dedicated gallbladder ultrasound today if possible. He wants to see patient outpatient at the beginning of the week next week. We also did a CT scan that I was concerned for the free fluid on the imaging. This is why I consulted Dr. Zhou initially. I had concern for possible ovarian etiology or even enteritis, other abdominal etiology. I was consulted by the JEN, and we discussed the complexity of problems being addressed. I approved the treatment and management plan for this patient's care in the emergency department, thus performing a substantial portion of the medical decision making. Patient had most consistent right flank and right upper quadrant pain. Lower suspicion for ovarian pathology as patient does not have pelvic or lower quadrant pain on exam. Workup and symptoms most consistent with biliary colic versus gastroenteritis. Sharee Zhou MD At 3 PM transfer care given to Dr. Young to follow-up dedicated gallbladder ultrasound and reevaluation of patient with JEN. Formal gallbladder ultrasound showed no gallstones just gallbladder sludge. Will have patient follow at with Dr. Le next week as he requested. Patient will be given pain meds for discharge. She is safe for discharge home. <Sharee Zhou MD - Last Filed: 07/14/25 15:42> Vital Signs: 07/14/25 09:30 07/14/25 09:30 07/14/25 12:28 Temperature 98.1 F 98.1 F Temperature Source Oral Pulse Rate 94 H 68 Pulse Rate [Left] 94 H Respiratory Rate 18 18 Blood Pressure 112/77 107/75 L Blood Pressure [Left Arm] 112/77 Blood Pressure Mean [Left Arm] 88 02 Sat by Pulse Oximetry 99 99 99 07/14/25 12:30 07/14/25 13:00 07/14/25 14:00 Temperature Temperature Source Pulse Rate 64 63 61 Pulse Rate [Left] Respiratory Rate Blood Pressure 114/75 104/66 L 99/62 L Blood Pressure [Left Arm] Blood Pressure Mean [Left Arm] 02 Sat by Pulse Oximetry 99 98 97 07/14/25 14:30 07/14/25 15:00 Temperature Temperature Source Pulse Rate 64 53 L Pulse Rate [Left] Respiratory Rate Blood Pressure 103/72 L 105/64 L Blood Pressure [Left Arm] Blood Pressure Mean [Left Arm] 02 Sat by Pulse Oximetry 98 100 Lab Data Lab Results 07/14/25 09:20: Urine Color Yellow, Urine Appearance Clear, Urine pH 5.5, Ur Specific [place] >= 1.030, Urine Protein Trace, Urine Glucose (UA) Negative, Urine Ketones Trace, Urine Blood Negative, Urine Nitrate Negative, Urine Bilirubin 1+ A, Urine Urobilinogen 1.0, Ur Leukocyte Esterase Trace, Urine RBC 3-5, Urine WBC 10-20, Ur Squamous Epith Cells 10-20, Urine Bacteria 3+ 07/14/25 09:40: WBC 8.2, RBC 4.38, Hgb 13.6, Hct 39.2, MCV 89.5, MCH 31.1, MCHC 34.7, RDW 12.4, Plt Count 288, MPV 11.4 H, Neut % (Auto) 83.7 H, Lymph % (Auto) 11.1, [place] % (Auto) 4.1, Eos % (Auto) 0.7, Baso % (Auto) 0.2, Neut # (Auto) 6.9, Lymph # (Auto) 0.9, [place] # (Auto) 0.3, Eos # (Auto) 0.1, Baso # (Auto) 0.0, Sodium 137, Potassium 4.2, Chloride 110 H, Carbon Dioxide 20 L, Anion Gap 11.2, BUN 17, Creatinine 0.70, Estimated Creat Clear 165, Estimated GFR 97, Est GFR ( Amer) 117, Glucose 98, Calcium 8.6, Magnesium 1.8, Total Bilirubin 1.5 H, AST 38 H, ALT 40, Alkaline Phosphatase 57, Troponin I < 0.01, Total Protein 7.1, Albumin 4.2, Globulin 2.9, Albumin/Globulin Ratio 1.4, Lipase 84 07/14/25 12:25: Urine Color Yellow, Urine Appearance Clear, Urine pH 5.0, Ur Specific [place] 1.015, Urine Protein Negative, Urine Glucose (UA) Negative, Urine Ketones Negative, Urine Blood Negative, Urine Nitrate Negative, Urine Bilirubin Negative, Urine Urobilinogen 0.2, Ur Leukocyte Esterase Negative, Urine RBC None, Urine WBC Occasional, Ur Squamous Epith Cells None, Urine Bacteria None Orders (Tests/Meds): ED MEDICATIONS Discontinued Medications Generic Name Dose Route Start Last Admin Trade Name Loki PRN Reason Stop Dose Admin Acetaminophen 1,000 mg 07/14/25 10:22 07/14/25 10:39 Acetaminophen 1,000mg/100ml Vial IV 07/14/25 10:23 1,000 mg ONCE ONE Administration Sodium Chloride 1,000 mls @ 999 mls/hr 07/14/25 10:22 07/14/25 11:59 Sod Chlor 0.9% 1000ml Bag IV 07/14/25 11:22 Infused .Q1H1M ONE Infusion Iopamidol 75 ml 07/14/25 10:54 07/14/25 10:55 Iopamidol-370 (76%);100ml Bottle IV 07/14/25 10:55 75 ml ONCE ONE Administration Ketorolac Tromethamine 30 mg 07/14/25 10:22 07/14/25 10:38 Ketorolac 30mg/Ml Vial IV 07/14/25 10:23 30 mg ONCE ONE Administration Ketorolac Tromethamine 30 mg 07/14/25 15:28 07/14/25 15:38 Ketorolac 30mg/Ml Vial IV 07/14/25 15:29 30 mg ONCE ONE Administration Morphine Sulfate 4 mg 07/14/25 11:59 07/14/25 12:06 Morphine 4mg/Ml Syringe IV 07/14/25 12:00 4 mg ONCE ONE Administration Ondansetron HCl 4 mg 07/14/25 10:22 07/14/25 10:36 Ondansetron 4mg/2ml Vial IV 07/14/25 10:23 4 mg ONCE ONE Administration Sodium Chloride 10 ml 07/14/25 10:54 07/14/25 10:55 Sodium Chloride 0.9% 10ml Syr (Rad Only) IV 07/14/25 10:55 10 ml ONCE ONE Administration ORDERS Category Date Time Status CT abdomen pelvis w con Stat Cat Scan 07/14/25 10:21 Completed POCUS Point of Care (ER Only) Stat Exams 07/14/25 11:55 Completed US gallbladder Stat Exams 07/14/25 13:58 Completed CBC [Complete Blood Count Auto Diff] Stat Lab 07/14/25 09:40 Completed Comprehensive Metabolic Panel Stat Lab 07/14/25 09:40 Completed Lipase Stat Lab 07/14/25 09:40 Completed Magnesium Stat Lab 07/14/25 09:40 Completed Trop I [Troponin I] Stat Lab 07/14/25 09:40 Completed Troponin I Q3H Lab 07/14/25 13:30 Ordered Troponin I Q3H Lab 07/14/25 16:30 Ordered Urinalysis and Microscopic Stat Lab 07/14/25 09:20 Completed Urinalysis and Microscopic Stat Lab 07/14/25 12:25 Completed Urine Culture Stat Micro 07/14/25 09:20 Received Medical Decision Narrative: patient is a 30-year-old female presenting to the emergency department for evaluation of right flank pain and diffuse abdominal pain with increased urinary frequency. Patient is hemodynamically stable and nontoxic-appearing upon arrival, afebrile. Differential diagnosis includes kidney stone, UTI, pyelonephritis. Workup will be conducted with hematologic labs, specific imaging. Initial inventions include crystalloid bolus, analgesics. Initial workup reviewed by me hematologic labs are nonactionable. Ultrasound showed 2 mm wall thickening, no pericholecystic fluid and possible gallstones per Dr. Zhou. I called Dr. Le for surgical opinion and he wants her to get a dedicated gallbladder ultrasound today if possible. He wants to see patient outpatient at the beginning of the week next week. We also did a CT scan that I was concerned for the free fluid on the imaging. This is why I consulted Dr. Zhou initially. I had concern for possible ovarian etiology or even enteritis, other abdominal etiology. I was consulted by the JEN, and we discussed the complexity of problems being addressed. I approved the treatment and management plan for this patient's care in the emergency department, thus performing a substantial portion of the medical decision making. Patient had most consistent right flank and right upper quadrant pain. Lower suspicion for ovarian pathology as patient does not have pelvic or lower quadrant pain on exam. Workup and symptoms most consistent with biliary colic versus gastroenteritis. Sharee Zhou MD At 3 PM transfer care given to Dr. Young to follow-up dedicated gallbladder ultrasound and reevaluation of patient with JEN. Procedures <Sharee Zhou MD - Last Filed: 07/14/25 15:42> Limited Ultrasound Indication:: Abdominal pain Findings:: Limited RUQ ultrasound Indication: Abdominal pain Identified structures: -Gallbladder -Gallbladder wall -Liver Findings: Sonographic Yoder sign: Present Gallstones: Present Pericholecystic fluid: Absent Maximal GB wall thickness (mm): 2 mm normal Impression: Cholelithiasis Images saved to permanent archive The study was technically adequate CPT 49195-33 This study was performed by me, and I personally interpreted all images/videos. Based on my clinical judgement, these images were [adequate/inadequate] and [did/did not] necessitate further imaging. Critical Care <Sharee Zhou MD - Last Filed: 07/14/25 15:42> Critical Care Time Critical Care Time: No
[2025-07-14 11:44] LABS: Albumin Level 4.2 g/dl (3.5-5.0); Albumin/Globulin Ratio 1.4 (1.1-1.8); Globulin 2.9 g/dL (1.3-3.2)
[2025-07-14] MEDS: MORPHINE 4MG/ML SYRINGE 4 MG IV (12:06)
[2025-07-14 12:32] LABS: Microscopic, Urine URINE MICROSCOPIC (MICROSCOPIC)
[2025-07-14 12:41] LABS: Bilirubin,Urine Negative (Negative); Color,Urine YELLOW (Yellow); Glucose,Urine (UA) Negative (Negative); Ketones,Urine Negative (Negative); Leukocyte Esterase,Urine Negative (Negative); PH,Urine 5.0 (5.0-8.5); Protein,Urine Negative (Negative); Specific Gravity, Urine 1.015 (1.005-1.030); Urobilinogen,Urine 0.2 EU/dl (0.2)
[2025-07-14 12:52] LABS: WBC,Urine Occasional #/hpf (0-3)
--- NOTE | 2025-07-14 13:08 | PC.NURSE ---
Dr. Le pagesherron
--- NOTE | 2025-07-14 13:55 | PC.NURSE ---
Radha speaking with Dr. Le
--- NOTE | 2025-07-14 13:58 | US_ITS ---
FINAL REPORT TECHNIQUE: Sonographic images of the right upper quadrant were obtained. CLINICAL HISTORY: right upper pain COMPARISON: None FINDINGS: PANCREAS: Unremarkable. LIVER: Diffuse fatty liver. No focal hepatic lesion. No intrahepatic biliary ductal dilatation. The portal vein is patent. GALLBLADDER: There is sludge present in the gallbladder. There are no shadowing stones. The gallbladder wall is not thickened. COMMON DUCT: 3 mm. Normal for age. RIGHT KIDNEY: The right kidney measures 11.1 cm. There is no hydronephrosis, mass, or stone. FREE FLUID: None. IMPRESSION: Gallbladder sludge. Fatty liver. Reviewed, Interpreted and Dictated by Alysha Gallagher MD Transcribed by Halie Bell Authenticated and [facility]
== END 2025-07-14 16:18 | disposition home or self-care (01) ==
PROVIDERS: Nurse Practitioner; Emergency Provider Student in an Organized Health Care Education/Training Program
DX: R10.11 Right upper quadrant pain (principal); K82.8 Other specified diseases of gallbladder; F17.210 Nicotine dependence, cigarettes, uncomplicated
CPT/HCPCS: 74177; 76705; 80053; 81001; 83690; 83735; 84484; 85025; 87086; 96365; 96375; 99285; J0131; J1885; J2270; J2405; J7030; Q9967

== ENCOUNTER 2025-08-08 08:19 | Outpatient (CLI) | payer BC, SELFPAY ==
--- NOTE | 2025-08-08 09:00 | NM_ITS ---
FINAL REPORT CLINICAL HISTORY: right upper quad pain x 1 month 8:30 am 8.34 mci tc choletec 1.8 mcg off ckk pain during cck sent prior u/s gb FINDINGS: Sequential anterior projection images of the abdomen were obtained after the intravenous injection of 8.34 mCi technetium 99m Choletec. There is normal uptake of radiotracer by the liver. Biliary activity, gallbladder activity, and drainage of tracer into the small bowel occurs in a normal timely fashion. After 1 hour, 1.8 ?g of CCK was injected intravenously for calculation of gallbladder ejection fraction. The gallbladder ejection fraction is 78%, which is within normal limits. IMPRESSION: No evidence of cystic duct or bile duct obstruction. Normal gallbladder ejection fraction of 78%. Reviewed, Interpreted and Dictated by Alysha Gallagher MD Transcribed by Ting Villanueva Authenticated and [facility]
[2025-08-08] MEDS: SINCALIDE 1.8 MCG in 0.9 % SODIUM CHLORIDE 50 ML 100 MCG IV (10:57)
[2025-08-08] MEDS: SODIUM CHLORIDE 0.9% 10ML SYR (RAD ONLY) 10 ML IV (10:57)
[2025-08-08] MEDS: ISOTOPE CHOLETECH;1 DOSE (UP TO 15 MCI) IV (10:57)
== END 2025-08-08 23:59 | disposition home or self-care (01) ==
LOC: RAD 08:20
PROVIDERS: PCP Student in an Organized Health Care Education/Training Program; Visit Provider Surgery
DX: R10.11 Right upper quadrant pain (principal)
CPT/HCPCS: 78227; A9537; J2805

== ENCOUNTER 2025-08-17 07:56 | Outpatient (CLI) | payer BC, SELFPAY ==
[2025-08-17 08:05] VITALS: BMI 33.3
[2025-08-17 08:35] LABS: Hematocrit 39.6 % (37.0-47.0); Hemoglobin 13.7 g/dL (12.2-16.2); Immature Granulocytes % 0.4 %; Mean Corpuscular HGB Conc 34.6 g/dL (31.8-35.4); Mean Corpuscular Hemoglobin 31.0 pg (27.0-31.2); Mean Corpuscular Volume 89.6 fl (81-99); Nucleated Red Blood Cells % 0 %; Platelet Count 299 K/mm3 (142-424); Red Blood Count 4.42 M/mm3 (4.20-5.40); Red Cell Distribution Width-SD 41.2 fL; White Blood Count 7.6 K/mm3 (4.8-10.8)
[2025-08-17 08:40] LABS: Chloride 105 mmol/L (98-107)
[2025-08-17 08:41] LABS: Albumin Level 4.2 g/dl (3.5-5.0); Potassium 4.1 mmoL/L (3.5-5.1); Sodium 138 mmol/L (136-145)
[2025-08-17 08:43] LABS: Blood Urea Nitrogen 15 mg/dl (7-17); Creatinine Clearance Estimated 165 mL/min (50-200); Creatinine,Serum 0.70 mg/dl (0.52-1.04); Estimated Glomerular Filt Rate 97 ml/min (>60); GFR (African American) 117 ML/MIN (>60)
[2025-08-17 08:44] LABS: Alanine Aminotransferase 42 U/L (12-78); Albumin/Globulin Ratio 1.3 (1.1-1.8); Alkaline Phosphatase 61 U/L (38-126); Anion Gap 13.1 mEq/L (5-15); Aspartate Amino Transferase 32 U/L (14-36); Bilirubin,Total 0.8 mg/dl (0.2-1.3); Calcium 8.2 mg/dl (8.4-10.2); Carbon Dioxide 24 mmol/L (22.0-30.0); Globulin 3.3 g/dL (1.3-3.2); Glucose 93 mg/dl (74-100); Total Protein,Serum 7.5 g/dl (6.3-8.2)
[2025-08-17 08:59] LABS: Urine Pregnancy, HCG Qual. Negative (Negative)
== END 2025-08-17 23:59 | disposition home or self-care (01) ==
LOC: PREOP 07:57
PROVIDERS: Visit Provider Surgery
DX: Z01.812 Encounter for preprocedural laboratory examination (principal)
CPT/HCPCS: 80053; 81025; 85025

== ENCOUNTER 2025-08-24 06:02 | Day surgery (SDC) | payer BC, SELFPAY ==
[2025-08-17 09:12] VITALS: BMI 33.3
[2025-08-24] VITALS (13 sets, daily range): BP systolic 113–131; BP diastolic 64–88; PULSE 62–88; RESP 14–18; TEMP 36.1–38; O2SAT 93–100; BMI 33.3
[2025-08-24] MEDS: LACTATED RINGERS 1000ML 1,000 ML 25 ML IV (06:38)
--- NOTE | 2025-08-24 06:52 | EXP.ANES.CKL ---
[facility] Disclaimer: The information contained in this section may have been updated after the patient was seen, as this information can be updated by other users. Medical History Right upper quadrant pain Achilles tendonitis, bilateral Anxiety and depression MDD (major depressive disorder), recurrent episode Mood disorder Hypothyroidism Irregular periods/menstrual cycles Obesity (BMI 30.0-34.9) Surgical History Hx of tubal ligation 11/2016 Family History Other No significant family history Social History (Updated 08/24/25 @ 06:23 by Shania Sandoval RN) Smoking Status: Current every day smoker tobacco type: cigarettes packs per day: 1 alcohol intake: never substance use type: denies use current occupational status: employed and other Travel in the last 8 weeks?: None Have you lived/traveled outside [place] in past 30 days?: No Contact w/someone who lives/traveled outside [place] past 30 days?: No Exposure to someone with infectious disease in past 14 days?: No Do you have a fever (greater than 100.4 F or 38 C)?: No Have you tested positive for COVID-19?: No Exposed to someone with COVID-19 in past 14 days?: No Do you have a sore throat?: No Do you have a cough?: No Do you have any weakness?: No Are you experiencing any nausea/vomitting?: No Do you have any diarrhea?: No Are you experiencing any unusual bleeding?: No Do you have any muscle aches/pain?: No Do you have any abdominal pain?: No Are you experiencing loss of taste or smell?: No [facility] Anesthesia Checklist Patient Identification Patient Identification: Arm Band and Family Structural Data Admitted From: Home Planned Operative Procedure/s: Lap Rianna Consent for Planned Operative Procedure(s) Verified: Yes Verified Documents: Surgical Consent and History and Physical NPO Status Verified Time NPO: 00:00 Additional verifications Patient : No Anesthesia Reactions: No Hx Blood Transfusions: No Blood Transfusion Reaction: No Cephalosporin Allergy: Yes Previous Colonoscopy: Yes Airway Assessment Mallampati Score:: Class II C-Spine Mobility Assessed: Yes TMJ Mobility Assessed: Yes Dentition: Good Dentition Neurological Assessment Level of Consciousness: Awake, Alert, Appropriate and Follows Commands Hx Seizures: No Numbness or tingling in extremities: No Anesthesia Plan Anesthesia Risk discussed: Yes ASA Class: II Anesthesia Type: General Preoperative Comments Pre-Operative Comments: Overweight
[2025-08-24] MEDS: AZTREONAM 1 GM in 0.9 % SODIUM CHLORIDE 50 ML IV (07:02)
[2025-08-24] MEDS: LIDOCAINE 1% 20ML MDV 20 ML (07:36)
[2025-08-24] MEDS: SODIUM CHLORIDE IRRIG SOLUTION 3,000 ML 200 ML IR (07:39)
--- NOTE | 2025-08-24 08:25 | P.OP_ITS ---
Date of procedure: 08/24/25 Pre-op Diagnosis:: Chronic cholecystitis Post-op Diagnosis:: Same Procedure performed:: Laparoscopic cholecystectomy Surgeon:: Fitz Le MD MEMBERSHIP MANAGER:: Monty Stubbs Anesthesia: GETSangeeta Estimated blood loss (mL): 15 Operative findings:: She had gallbladder completely obscured with omental adhesions. There were some adhesions to the surrounding liver. She had moderate fatty infiltration of the liver. Operative note:: Consent was obtained patient was taken the operating room. She was given preoperative intravenous antibiotic. In the operating room she was placed in a supine position. General anesthesia was induced via endotracheal tube. Abdomen was prepped and draped in the standard surgical fashion. Infraumbilical skin incision was made and while performing abdominal wall lift Veress needle was inserted. CO2 pneumoperitoneum was achieved to 15 mmHg. 5 mm trocar was inserted at the umbilicus. Intraperitoneal contents were visualized. She was positioned in reverse Trendelenburg and left side down. A couple 5 mm trocars were inserted in the right upper abdomen. 11 mm trocar was inserted in the epigastrium. Fundus of the gallbladder was identified. There was some fatty infiltration of the liver. Fundus of the gallbladder was retracted anteriorly. Other than this tiny portion of fundus the gallbladder was completely obscured with omental adhesions. There were some adhesions to the surrounding liver. These were incised with ultrasonic harmonic titus. Omental adhesions were then dissected free from the gallbladder using blunt dissection with some use of u ltrasonic harmonic titus. Ultimately upon reaching the infundibulum of the gallbladder is retracted anterior laterally. Careful blunt dissection was carried out at the neck of the gallbladder identifying and isolating the cystic duct and cystic artery. Cystic duct was isolated, multiply clipped, and sharply divided. Cystic artery was carefully coagulated with ultrasonic robotic titus and divided. Gallbladder was dissected free from the liver in a retrograde fashion using ultrasonic harmonic titus. Gallbladder was placed within an Endo Catch retrieval device and removed from the peritoneal cavity via the epigastric trocar site. Gallbladder fossa was inspected for hemostasis which was assured. Limited irrigation and suctioning was performed. Fascia at the epigastric site was closed with a single 0 Vicryl suture using the Jose Alfredo-Jina laparoscopic fascial closure device. Trocars were then removed as CO2 pneumoperitoneum was evacuated. Local anesthetic was infiltrated. Skin incisions were closed with 4-0 Monocryl subcuticular fashion. Condition: stable Disposition: PACU Complications:: None immediately apparent
--- NOTE | 2025-08-24 08:35 | P.PNANES_ITS ---
[facility] Anesthesia Record Part I Anesthesia Record I Intake, IV Amount: 1,300 Hydration: Adequate Estimated blood loss (mL): 15 Urine output (mL): 0 Blood Products used (#): none Blood Pressure: 116/73 SaO2: 93 Pulse Rate: 79 Airway Patency: Patent Respiratory Rate: 18 Temperature: 98.2 F Patient is:: Drowsy and Stable Stable to PACU at:: 08:29
[2025-08-24] MEDS: ONDANSETRON 4MG/2ML VIAL 4 MG (08:41)
[2025-08-24] MEDS: MORPHINE 2MG/ML SYRINGE 2 MG IV (08:51)
--- NOTE | 2025-08-24 09:30 | SUR.PHASEII ---
pt c/o chest pain at this time. Anesthesia notified at this time. Ok'd for ekg
--- NOTE | 2025-08-24 09:35 | ECG_ITS ---
APPROVED REPORT Exam: Resting ECG HR:68 bpm ECG Measurements Heart Rate [address] 147 P 53 QRSd 83 QRS 39 QT 383 T 55 QTc 400 Conclusion SINUS RHYTHM WITH SINUS ARRHYTHMIA NORMAL ECG UNCONFIRMED REPORT Electronically signed by : Ridge Carrillo MD 08/26/2025 08:51:11
--- NOTE | 2025-08-24 09:35 | SUR.PHASEII ---
Ekg performed at this time. cleared by anesthesia
--- NOTE | 2025-08-24 13:36 | EXP.ANES.II ---
[facility] Anesthesia Record Part II Anesthesia Record Part II Discharge Time: 08:59 Destination: Surgical Day Care (OP Surgery) PACU nurse assessment reviewed?: Yes Patient Condition:: Good Anesthesia Complications:: None Swallowing reflex intact?: Yes Airway Patency: Patent Cyanosis?: No Blood Pressure: 121/79 SaO2: 98 Respiratory Rate: 17 Pulse Rate: 78 Temperature: 98.2 F Mental Status: Alert & Oriented Pain level:: 3 Nausea and/or vomitting:: None Intake, IV Amount: 0 Hydration: Adequate
== END 2025-08-24 11:35 | disposition home or self-care (01) ==
PROVIDERS: Visit Provider Surgery
PROC: 0FT44ZZ Resection of Gallbladder, Percutaneous Endoscopic Approach (ICD-10-PCS; CPT 47562; principal; 2025-08-24 07:30)
DX: K81.1 Chronic cholecystitis (principal); E66.9 Obesity, unspecified; Z68.33 Body mass index [BMI] 33.0-33.9, adult; Z88.0 Allergy status to penicillin; Z88.1 Allergy status to other antibiotic agents
CPT/HCPCS: 47562; 93005; 96374; J0457; J1100; J2003; J2250; J2270; J2405; J2704; J2795; J3010; J7120